=== PATIENT | male | born 1935 | race Caucasian/White ===

== ENCOUNTER 2016-02-10 03:48 | Emergency (ER) | payer OTHER, MEDICARE ==
[~2016-02-10] VITALS: Ht 177.8 cm; Wt 82.5 kg
[~2016-02-10 03:48] MED LIST: ASPIR 8181 M1 PO; ASPIRIN81 M2 PO; BACTRIM,SEPT1 TABLET PO; CLINDAMYCIN HC300 MG PO; COLCHICINE0.6 M1 PO; EXELON3 MG PO; HYDROCODONE CO120 ML PO; INDOMETHACIN25 MG PO; KEFLEX500 MG PO; LIPITOR40 MG PO; MEDROL DOSEPAK4 MG PO; METOPROLOL TART25 MG PO; NAMENDA10 MG PO; NAPROSYN500 MG PO; PERCOCET 5/31 TABLET PO; SERTRALINE HCL100 MG PO; VITAMIN D31000 UNIT PO; WELLBUTRIN SR150 MG PO; ZOLOFT50 MG PO
[2016-02-10 03:52] VITALS: BP 130/88
== END 2016-02-10 03:56 | disposition left against medical advice (07) ==
LOC: EME 03:48
DX: H92.02 Otalgia, left ear (principal); Z53.21 Procedure and treatment not carried out due to patient leaving prior to being seen by health care provider

== ENCOUNTER 2016-03-20 11:16 | Emergency (ER) | payer OTHER, MEDICARE ==
[~2016-03-20] VITALS: Ht 177.8 cm; Wt 79.0 kg
[2016-03-20 12:01] LABS: HEMATOCRIT 40.4 % (38.0-50.0); MCH 30.2 PG (29.0-34.0); MCHC 34.7 G/DL (30.0-36.0); MCV 87.1 FL (86-99); MEAN PLAT.VOLUME 10.3 uM^3 (9.0-12.4); PLATELET COUNT 218 K/uL (156-360); RBC DIS.WIDTH-SD 37.6 % (39-53); RED BLOOD COUNT 4.64 M/uL (4.00-5.50); WHITE BLOOD COUNT 5.2 K/uL (4.1-10.2)
[2016-03-20 12:12] LABS: CHLORIDE 105 mEq/L (99-109); POTASSIUM 4.7 mEq/L (3.7-5.4); SODIUM 140 mEq/L (136-147)
[2016-03-20 12:14] LABS: GLUCOSE 95 mg/dL (70-99)
[2016-03-20 12:15] LABS: ANION GAP 8 MEQ/L (2-14)
[2016-03-20 12:16] LABS: TOTAL BILIRUBIN 0.5 mg/dL (0.0-1.0)
[2016-03-20 12:18] LABS: ALKALINE PHOSPHATASE 109 IU/L (3-129); GFR ESTIMATE (CALCULATED) > 59 mL/min/
[2016-03-20 12:19] LABS: UREA NITROGEN (BUN) 24 mg/dL (9-23)
[2016-03-20 12:33] LABS: ADD MIUA? NO; BILIRUBIN NEGATIVE; BLOOD NEGATIVE; COLOR STRAW ((YELLOW)); GLUCOSE (STRIP) NEGATIVE; KETONES NEGATIVE; LEUKOCYTES NEGATIVE; NITRITE NEGATIVE; PROTEIN (STRIP) NEGATIVE; UCUL ADDED? NO; UROBILINOGEN 0.2 MG/DL (0.2-1.0)
[2016-03-20] MEDS ORDERED: MILK OF MAGN PO ×2 (13:44→13:45)
[2016-03-20 13:51] VITALS: BP 110/58
== END 2016-03-20 13:52 | disposition home or self-care (01) ==
LOC: EME 11:16
DX: K59.00 Constipation, unspecified (principal); R10.10 Upper abdominal pain, unspecified; E78.5 Hyperlipidemia, unspecified; I25.2 Old myocardial infarction; Z95.1 Presence of aortocoronary bypass graft
CPT/HCPCS: 74020; 80053; 81003; 85027; 99281; 99284

== ENCOUNTER 2016-07-26 10:09 | Emergency (ER) | payer OTHER, MEDICARE ==
[~2016-07-26] VITALS: Ht 177.8 cm; Wt 77.5 kg
[~2016-07-26 10:09] MED LIST changes: +MILK OF MAGN PO
[2016-07-26 12:10] LABS: BASOPHIL COUNT 0.1 K/uL (0-0.1); EOSINOPHIL (%) 6.4 % (0-5); EOSINOPHIL COUNT 0.4 K/uL (0-0.3); HEMATOCRIT 39.7 % (38.0-50.0); IMMATURE GRANULOCYTE (%) 0.3 % (0.0-0.7); INSTRUMENT ABS NEUTROPHIL CT 3.5 K/uL; LYMPHOCYTE COUNT 1.2 K/uL (1.0-2.8); MCH 29.9 PG (29.0-34.0); MEAN PLAT.VOLUME 10.6 uM^3 (9.0-12.4); MONOCYTE (%) 11.1 % (3-12); MONOCYTE COUNT 0.6 K/uL (0-0.8); NEUTROPHIL (%) 60.9 % (45-76); NEUTROPHIL COUNT 3.5 K/uL (1.8-6.4); PLATELET COUNT 187 K/uL (156-360); RBC DIS.WIDTH-CV 11.6 % (11.8-14.6); RBC DIS.WIDTH-SD 37.2 % (39-53); RED BLOOD COUNT 4.51 M/uL (4.00-5.50); WHITE BLOOD COUNT 5.8 K/uL (4.1-10.2)
[2016-07-26 12:23] LABS: CHLORIDE 110 mEq/L (99-109); POTASSIUM 4.4 mEq/L (3.7-5.4); SODIUM 143 mEq/L (136-147)
[2016-07-26 12:25] LABS: GLUCOSE 96 mg/dL (70-99)
[2016-07-26 12:26] LABS: ANION GAP 9 MEQ/L (2-14)
[2016-07-26 12:29] LABS: GFR ESTIMATE (CALCULATED) > 59 mL/min/
[2016-07-26 12:30] LABS: UREA NITROGEN (BUN) 21 mg/dL (9-23)
[2016-07-26 12:40] LABS: TROP-I INTERPRETATION NEGATIVE; TROPONIN-I < 0.01 ng/mL (0.0-0.30)
[2016-07-26 12:43] LABS: INTER. NORMALIZED RATIO 1.1; PROTHROMBIN TIME 10.7 (9.2-11.2); PTT 22.2 (25-32)
[2016-07-26 14:51] VITALS: BP 122/83
== END 2016-07-26 14:54 | disposition left against medical advice (07) ==
LOC: EME 10:09
PROVIDERS: Emergency Medicine
DX: R07.9 Chest pain, unspecified (principal); E78.5 Hyperlipidemia, unspecified; Z79.82 Long term (current) use of aspirin
CPT/HCPCS: 71010; 80048; 84484; 85025; 85610; 85730; 93005; 99281; 99284